=== PATIENT | female | born 1985 | race Caucasian/White ===

== ENCOUNTER 2019-05-26 16:18 | Observation (INO) | payer SELFPAY ==
[~2019-05-26] VITALS: Ht 154.9 cm; Wt 52.2 kg
[2019-05-26] MEDS ORDERED: SODIUM CHLORIDE 0.9% 1000ML 1,000 ML IV SCH (17:00)
[2019-05-26] MEDS ORDERED: SODIUM CHLORIDE 0.9% 1000ML 1,000 ML IV STA (17:07)
[2019-05-26 17:27] LABS: BILIRUBIN,URINE NEGATIVE (NEGATIVE); CLARITY,URINE CLEAR (CLEAR); COLOR,URINE YELLOW (YELLOW); KETONES,URINE NEGATIVE (NEGATIVE); LEUKOCYTE ESTERASE ,URINE NEGATIVE (NEGATIVE); NITRITE,URINE NEGATIVE (NEGATIVE); PROTEIN,URINE DIPSTICK NEGATIVE (NEGATIVE); URINE UROBILINOGEN 0.2 mg/dL (0.2 - 1)
[2019-05-26 17:34] LABS: PREGNANCY TEST, URINE NEGATIVE (NEGATIVE)
[2019-05-26 17:35] LABS: AMPHETAMINES SCREEN,URINE NEGATIVE (NEGATIVE); BENZODIAZEPINES SCREEN,URINE NEGATIVE (NEGATIVE); PHENCYCLIDINE SCREEN,URINE NEGATIVE (NEGATIVE)
[2019-05-26] MEDS ORDERED: ONDANSETRON HCL INJ 2MG/ML 2ML 2 MG/ML VIAL IV ONE (17:48)
[2019-05-26 17:49] LABS: BASOPHILS % 0.3 % (0.0-1.0); EOSINOPHILS # (AUTO) 0.1 (0.0-0.4); EOSINOPHILS % 0.7 % (0.0-6.0); HEMOGLOBIN 9.4 g/dL (12.0-16.0); LYMPHOCYTES # (AUTO) 1.3 (1.0-3.2); LYMPHOCYTES % 14.5 % (18.0-39.1); MEAN CORPUSCULAR HEMOGLOBIN 20.6 pg (28-32); MEAN CORPUSCULAR HGB CONC 29.4 g/dL (31-35); MEAN CORPUSCULAR VOLUME 70.2 fL (81-99); MONOCYTES # (AUTO) 0.4 (0.2-0.8); MONOCYTES % 4.4 % (4.4-11.3); NEUTROPHILS # (AUTO) 7.3 (2.1-6.9); NEUTROPHILS % 79.8 % (38.7-80.0); PLATELET COUNT 687 x10e3/uL (140-360); RED BLOOD COUNT 4.56 x10e6/uL (3.6-5.1); RED CELL DISTRIBUTION WIDTH 18.6 % (11.7-14.4)
[2019-05-26] MEDS ORDERED: MORPHINE SULFATE INJ 4 MG/ML INJ 1ML IV ONE (18:00)
[2019-05-26 18:07] LABS: ALANINE AMINOTRANSFERASE 10 IU/L (0-55); ALBUMIN 4.3 g/dL (3.5-5.0); ALKALINE PHOSPHATASE 117 IU/L (40-150); AMYLASE 58 U/L (25-125); ANION GAP 18.5 mmol/L (8-16); BLOOD UREA NITROGEN 14 mg/dL (7-26); BUN/CREATININE RATIO 14 (6-25); CALCIUM 9.9 mg/dL (8.4-10.2); CARBON DIOXIDE 20 mmol/L (22-29); CHLORIDE 104 mmol/L (98-107); CREATINE KINASE 52 IU/L (29-168); CREATININE, SERUM 0.99 mg/dL (0.57-1.11); EST GLOMERULAR FILTRATION RATE > 60 ML/MIN (60-); GLUCOSE 106 mg/dL (74-118); LIPASE 88 U/L (8-78); POTASSIUM 3.5 mmol/L (3.5-5.1); SODIUM 139 mmol/L (136-145)
[2019-05-26] MEDS ORDERED: ASPIRIN 81 MG CHEW TAB PO ONE (19:15)
[2019-05-26] MEDS ORDERED: KETOROLAC TROMETHAMINE 30 MG/ML VIAL IV STA (19:27)
[2019-05-26] MEDS: SODIUM CHLORIDE 0.9% 1000ML 1,000 ML IV SCH (19:29)
[2019-05-26] MEDS ORDERED: MORPHINE SULFATE 2 MG/ML SYR 1ML IV PRN (19:30)
[2019-05-26] MEDS ORDERED: no home meds (19:32)
--- NOTE | 2019-05-26 20:18 | Diagnostic Imaging Report ---
EXAMINATION: PA and lateral views of the chest. COMPARISON: None CLINICAL HISTORY: Left rib pain, no injury DISCUSSION: Lines/tubes: None. Lungs: The lungs are well inflated and clear. There is no evidence of pneumonia or pulmonary edema. Pleura: There is no pleural effusion or pneumothorax. Heart and mediastinum: Cardiomediastinal silhouette is unremarkable. Pulmonary vasculature is normal. Bones and soft tissues: No acute bony abnormalities. No acute, displaced fracture or dislocation. No lytic or expansile lesions IMPRESSION: No acute cardiopulmonary abnormalities. Signed by: Dr. Everette Lott M.D. on 05/26/2019 8:15 PM
[2019-05-26] MEDS: MORPHINE SULFATE INJ 4 MG/ML INJ 1ML IV PRN (22:02)
[2019-05-26 23:44] VITALS: BP 141/93
[2019-05-26] MEDS ORDERED: ACETAMINOPHEN 325 MG TAB PO PRN (23:45)
[2019-05-26 23:46] VITALS: BP 141/93
[2019-05-27] VITALS (7 sets, daily range): BP systolic 117–152; BP diastolic 78–100
--- NOTE | 2019-05-27 01:24 | NUR ---
Report received from JUAN MIGUEL Anderson. Patient admitted in unit @2300 by stretcher. Patient received alert/oriented x3. Denied pain and no SOB. Respiration even and unlabored. head to toe assessment completed. No skin breakdown. Patient instructed to call for help as needed,verbalized and understand. bed in lower position,locked. Call carmona within reach. Will continue to monitor.
[2019-05-27] MEDS: MORPHINE SULFATE INJ 4 MG/ML INJ 1ML IV PRN ×3 (01:58→10:11)
[2019-05-27 02:16] LABS: CREATINE KINASE MB 0.6 ng/mL (0-5.0)
[2019-05-27] MEDS: SODIUM CHLORIDE 0.9% 1000ML 1,000 ML IV SCH (03:08)
[2019-05-27 06:33] LABS: BASOPHILS % 0.4 % (0.0-1.0); EOSINOPHILS # (AUTO) 0.2 (0.0-0.4); EOSINOPHILS % 1.7 % (0.0-6.0); HEMATOCRIT 24.4 % (34.2-44.1); LYMPHOCYTES # (AUTO) 3.2 (1.0-3.2); LYMPHOCYTES % 36.1 % (18.0-39.1); MEAN CORPUSCULAR HEMOGLOBIN 20.1 pg (28-32); MEAN CORPUSCULAR HGB CONC 27.9 g/dL (31-35); MONOCYTES # (AUTO) 0.8 (0.2-0.8); MONOCYTES % 8.9 % (4.4-11.3); NEUTROPHILS # (AUTO) 4.7 (2.1-6.9); NEUTROPHILS % 52.7 % (38.7-80.0); PLATELET COUNT 499 x10e3/uL (140-360); RED BLOOD COUNT 3.39 x10e6/uL (3.6-5.1); RED CELL DISTRIBUTION WIDTH 18.8 % (11.7-14.4)
[2019-05-27 06:57] LABS: ANION GAP 12.6 mmol/L (8-16); BLOOD UREA NITROGEN 11 mg/dL (7-26); BUN/CREATININE RATIO 14 (6-25); CALCIUM 8.6 mg/dL (8.4-10.2); CARBON DIOXIDE 22 mmol/L (22-29); CHLORIDE 110 mmol/L (98-107); CREATINE KINASE 46 IU/L (29-168); CREATININE, SERUM 0.78 mg/dL (0.57-1.11); EST GLOMERULAR FILTRATION RATE > 60 ML/MIN (60-); GLUCOSE 95 mg/dL (74-118); POTASSIUM 3.6 mmol/L (3.5-5.1); SODIUM 141 mmol/L (136-145)
[2019-05-27 07:03] LABS: HEMOGLOBIN 6.8 g/dL (12.0-16.0)
--- NOTE | 2019-05-27 07:19 | NUR ---
Report given to oncoming nurse Avril, walking round done.
[2019-05-27 07:45] LABS: EOSINOPHILS % (MANUAL) 1 % (0-7); LYMPHOCYTES % (MANUAL) 33 % (19-48); MONOCYTES % (MANUAL) 6 % (3.4-9.0); NEUTROPHILS % (MANUAL) 60 % (40-74)
[2019-05-27 07:46] LABS: ANISOCYTOSIS S; ELLIPTOCYTE, RBC S; OVALOCYTES FEW; PLATELET MORPHOLOGY COMMENT NORMAL; POIKILOCYTOSIS F; RBC MORPHOLOGY COMMENT ABNORMAL
[2019-05-27 07:47] LABS: PLATELET ESTIMATE SLIGHTLY INCREASED
[2019-05-27] MEDS ORDERED: ASPIRIN 81 MG ENTERIC COATED PO SCH (09:00)
[2019-05-27 10:56] LABS: CHOL/HDL RATIO 2.4 (3.0-3.6)
[2019-05-27 10:58] LABS: HEMATOCRIT 23.1 % (34.2-44.1)
[2019-05-27 11:11] LABS: HEMOGLOBIN 6.8 g/dL (12.0-16.0)
[2019-05-27 11:15] LABS: THYROID STIMULATING HORMONE 3.33 uIU/mL (0.350-4.940)
[2019-05-27] MEDS ORDERED: FUROSEMIDE INJ 10 MG/ML 2 ML VIAL IV PRN (11:45)
[2019-05-27] MEDS ORDERED: SODIUM CHLORIDE 0.9% 250ML 250 ML IV NR ×2 (12:00→12:15)
[2019-05-27] MEDS: LIDOCAINE 5% PATCH TP SCH (13:01)
--- NOTE | 2019-05-27 13:25 | Diagnostic Imaging Report ---
EXAM: CT Chest WITH contrast- Pulmonary Embolism Protocol INDICATION: Chest pain COMPARISON: Chest radiograph 05/26/2019 TECHNIQUE: Chest was scanned utilizing a multidetector helical scanner from the lung apex through the level of the diaphragm after administration of IV contrast. Thin section reconstructions were obtained with special concentration on the pulmonary arteries. Coronal and sagittal reformations were obtained. Pulmonary embolism protocol was performed. IV CONTRAST: 100 cc of Isovue 370 RADIATION DOSE: Total DLP: 246.8 mGy*cm Dose modulation, iterative reconstruction, and/or weight based adjustment of the mA/kV was utilized to reduce the radiation dose to as low as reasonably achievable. COMPLICATIONS: None FINDINGS: LINES/ TUBES: None. PULMONARY ARTERIES: No filling defect is identified within the pulmonary arteries to the segmental level. The subsegmental pulmonary arteries are not well opacified. Main pulmonary artery measures 2.2 cm in diameter. LUNGS AND AIRWAYS: The central airways are patent. No focal consolidation or pulmonary edema. No suspicious pulmonary nodules. PLEURA: The pleural spaces are clear. HEART AND MEDIASTINUM: The thyroid gland appears unremarkable. No supraclavicular, mediastinal, or hilar lymphadenopathy. The heart is not enlarged. No evidence of right heart strain. No pericardial effusion. UPPER ABDOMEN: No focal abnormalities of the partially visualized liver, spleen, adrenals, or pancreas. Status post cholecystectomy. Several nonobstructive left upper pole renal calculi measure up to 6 mm. BONES: The visualized bony thorax is within normal limits. SOFT TISSUES: Unremarkable. IMPRESSION: No pulmonary embolism. No acute cardiopulmonary process. Nonobstructive left upper pole renal calculi. Signed by: Anshu Floyd MD on 05/27/2019 1:21 PM
[2019-05-27] MEDS: MORPHINE SULFATE 2 MG/ML SYR 1ML IV PRN ×3 (14:23→22:20)
[2019-05-27 14:39] LABS: CREATINE KINASE 49 IU/L (29-168)
[2019-05-27] MEDS ORDERED: SODIUM CHLORIDE 0.9% 50ML 50 ML ONE (15:03)
[2019-05-27] MEDS ORDERED: IOPAMIDOL 370 MG/ML 200 ML INFUS..BTL INJ ONE (15:03)
--- NOTE | 2019-05-27 15:20 | History and Physical ---
CHIEF COMPLAINT: Chest pain. HISTORY OF PRESENT ILLNESS: A 34-year-old female with no past medical history, who presents to the ED with complaints of underlying left-sided chest pain ongoing for the last 2 days. The patient reports that she noticed this two days ago, but denies any trauma or any increase with activity that suggests the pain. She was driving on the freeway yesterday and noticed that her pain was getting worse and came in to [facility] for further evaluation. She denies taking any medications at home. Denies any oral contraceptive medications at home. She does have normal periods and was noticed to have a hemoglobin of 6.8 today. The patient was seen and evaluated at bedside on the medical floor. Currently, she is doing well with no other issues at this time. Cardiology has been consulted. REVIEW OF SYSTEMS: Pertinent positive: Left-sided chest pain. Pertinent negatives: Denies any palpitation, nausea, vomiting, diarrhea, dysuria, hematuria, frequency, urgency, lightheadedness, dizziness, abdominal pain, headaches, shortness of breath, cough, congestion, fever, or any other complaints. Rest of the 14-point review of systems have been reviewed with the patient and are negative. ALLERGIES: CODEINE, IBUPROFEN, KETOROLAC. HOME MEDICATIONS: None. PAST MEDICAL HISTORY: None. PAST SURGICAL HISTORY: None. FAMILY HISTORY: Hypertension and diabetes. SOCIAL HISTORY: No drugs, no alcohol, does not smoke. Good social support. PHYSICAL EXAMINATION: VITAL SIGNS: Temperature 97.7, pulse 93, respiratory rate is 20, blood pressure is 130/78, pulse ox 99% on room air. GENERAL: Not in acute distress. Alert and oriented x3. Cooperative on examination. HEENT: Head is normocephalic and atraumatic. Eyes; pupils are equal, round, and reactive to light bilaterally. Extraocular Movements are intact bilaterally. Throat, no evidence of erythema or exudates in the posterior pharynx. Has poor dentition. NECK: Supple. Good range of motion. PULMONARY: Clear to auscultation bilaterally. No wheezing, rales, or rhonchi. No crackles appreciated. CARDIOVASCULAR: Positive S1 and S2. No murmurs, rubs, or gallops. GI: Abdomen is soft, nondistended, and nontender to palpation. Bowel sounds present. MUSCULOSKELETAL: Strength is 5/5 throughout. No evidence of any muscle deficits on examination. No weakness appreciated. NEUROLOGIC: Cranial nerves II through XII grossly intact. No evidence of any neurological deficits on exam. SKIN: Intact. Warm to touch. Good cap Refill. PSYCHIATRIC: Normal affect and mood. EXTREMITIES: No edema. Good range of motion throughout. LABORATORY DATA: Lab findings show white count on admission is 9.1, hemoglobin on admission was 9.4 then downtrended to 6.8. Her MCV is 72. Her hematocrit is 23, platelets of 499. D-dimer 217. Chemistry; sodium 141, potassium 3.6, chloride 110, bicarbonate 22, anion gap of 12, BUN is 11, creatinine 0.78, glucose 95, calcium is 8.6, total bilirubin is 0.2, AST is 15, ALT is 10, albumin was 4.3, TSH 3.3, lipase 88, amylase 68, LDL 58, albumin 4.3. Troponins were all negative. Urinalysis was negative. Urine drug screen was negative. MICROBIOLOGY: None. IMAGING STUDIES: Chest x-ray, no acute cardiopulmonary abnormality. IMPRESSION: 1. Atypical chest pain. 2. Iron-deficiency anemia. 3. Costochondritis. PLAN: At this time, cardiac enzymes were negative. Cardiology was consulted, likely to be atypical in nature and seems to be from her story as well. Tender to palpation on examination. We will continue with pain control. I will get a type and screen and transfuse 1 unit of packed RBCs. We will put a lidocaine patch. Toradol was given. If the patient is cleared by Cardiology, we will discharge home today. I did order a CTA of the chest for ruling out of PE as she does complain of like chest pain in the left lower quadrant of her chest and I want to rule out any kind of clots. At this time, we will continue with same plan of care and monitor closely. If imaging studies are negative, blood transfusion given, cleared by Cardiology to potentially discharge home later today. MD RISSA Watt/LASHAWNL /[id number]
--- NOTE | 2019-05-27 15:55 | Consultation ---
DATE OF CONSULTATION: 05/27/2019 REASON FOR CONSULTATION: Chest pain. CHIEF COMPLAINT: Left flank chest pain. HISTORY OF PRESENT ILLNESS: This is a 34-year-old female with no medical history. The patient presents to [facility] ER with 3-day history of left flank chest pain. Cardiology was consulted. Labs noted. Cardiac enzymes showing negative x3. D-dimer within normal range. However, EKG was done with initially showing inverted T-waves in the inferior lateral leads. However, repeat EKG done showing sinus rhythm, heart rate in 70s with normal sinus rhythm. The patient was evaluated with bedside nurse. The patient reports left flank chest pain for the past 2 to 3 days, constant in nature, reproducible with palpation and also worse with deep breathing. The patient denies any recent activities or heavy lifting of such. The patient, however, denies any exertional chest pain, any shortness of breath, any orthopnea, PND, or lower extremity edema. PAST MEDICAL HISTORY: Denies any medical history. PAST SURGICAL HISTORY: Cholecystectomy. SOCIAL HISTORY: She is . She has two kids, reports healthy. 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 She denies any alcohol use, tobacco use. FAMILY HISTORY: Mother is alive, age 60, reported as healthy. Father at the age of 52, apparently with complications of thyroid cancer, however, did have a history of coronary artery disease, status post CABG. ALLERGIES: TO CODEINE, IBUPROFEN, TORADOL. HOME MEDICATIONS: Denies any home medications. REVIEW OF SYSTEMS: GENERAL: Denies any weight changes, fatigue, fevers, chills, night sweats. SKIN: No rashes, bruises were noted. HEENT: Denies nausea, vomiting, any vision changes, blurred vision, double vision, epistaxis, sore throat, swollen neck. CARDIAC: Denies any exertional chest pain, however, does report left chest flank pain as above. Denies any shortness of breath. No orthopnea, PND, or lower extremity edema. RESPIRATORY: Denies any shortness of breath. No wheezing, coughing, hemoptysis. GI: Reports good appetite. No nausea, vomiting, diarrhea, constipation, melena, hematochezia. URINARY: Denies any frequency, urgency, dysuria, hematuria. VASCULAR: Denies any lower extremity edema, claudication. MUSCULOSKELETAL: Denies any muscle weakness, any joint pains. NEUROLOGIC: Denies any numbness, tingling, tremors, weakness, paralysis. HEMATOLOGY: Denies any bleeding or bruising. ENDOCRINE: Denies heat or cold intolerance, polyuria, polydipsia, or polyphagia. PHYSICAL EXAMINATION: VITAL SIGNS: Height 61 inches, weight 115 pounds. Temperature 97, pulse 93, respiratory rate 20, blood pressure 130/78, pulse ox 99% on room air. GENERAL: Appears stated age, reliable informant. No acute distress. SKIN: No rashes, bruises noted. HEENT: Normocephalic. Pupils equal and reactive. Extraocular movement intact. Trachea midline. No thyromegaly. No JVD. HEART: Regular rate and rhythm. No murmurs, clicks, or gallops noted. LUNGS: Bilateral breath sounds clear to auscultation. ABDOMEN: Soft, nontender, nondistended. No organomegaly noted. MUSCULOSKELETAL: Good muscle strength throughout. VASCULAR: +2 bilateral radial pulses. +2 DP and PT pulses bilaterally. NEUROLOGIC: Cranial nerves II through XII seem intact. LABORATORY DATA: White count 9, hemoglobin 9.4, however, repeat was 6.8 this morning, hematocrit 32, platelets 687. Sodium 141, potassium 3.6, chloride 110, BUN 11, creatinine 0.7. Troponins less than 0.001, 0.006, less than 0.001. D-dimer 217. Chest x-ray, no acute abnormalities. EKG; initial EKG showing sinus tach at 115 with inverted T-waves in the inferior lateral leads. Second EKG showing sinus rhythm, heart rate 78, no acute changes. ASSESSMENT: 1. Chest pain. 2. Anemia. PLAN: 1. The patient presents with left flank chest pain, atypical for cardiac, it is reproducible with palpation. Also, it is worse with deep breathing. Enzymes have been strongly negative x3. However, initial EKG did show some inverted T-waves in the inferior lateral leads. 2. We will get an echo to evaluate heart function and structure. 3. Given the patient's anemia, we will check fecal occult blood. 4. Of note, the patient is on her menses. 5. Check lipid and TSH panel. 6. We will continue to monitor the patient and make further recommendations as clinical course dictates. Thank you very much for this consult. Seen and evaluated Cardiac observation, Anemia and drop in H/H workup Dictated by Franki Shaw, PUBLIC HEALTH ADMINISTRATOR Ronnie Rob MD DC/MAI /[id number] KIARRA
[2019-05-27] MEDS ORDERED: SODIUM CHLORIDE 0.9% 250ML 250 ML ONE (17:25)
[2019-05-27 22:37] LABS: HEMATOCRIT 31.7 % (34.2-44.1); HEMOGLOBIN 9.4 g/dL (12.0-16.0)
--- NOTE | 2019-05-27 23:22 | NUR ---
pt recvd 1 unit of PRBC. HH wnl. pt to follow up with PCP and renal for kidney stones.
--- NOTE | 2019-05-27 23:45 | NUR ---
received report on patient. patient aaox3, amb., no needs voiced. patient refused discharge. spoke with dr. madden, okay to hold patient until he sees her tomorrow. patient aware.
[2019-05-28 00:10] VITALS: BP 146/96
[2019-05-28] MEDS: MORPHINE SULFATE 2 MG/ML SYR 1ML IV PRN ×2 (02:28→08:24)
[2019-05-28 04:34] VITALS: BP 151/99
[2019-05-28 05:41] LABS: BASOPHILS % 0.4 % (0.0-1.0); EOSINOPHILS # (AUTO) 0.1 (0.0-0.4); EOSINOPHILS % 0.9 % (0.0-6.0); HEMATOCRIT 28.8 % (34.2-44.1); HEMOGLOBIN 8.7 g/dL (12.0-16.0); LYMPHOCYTES # (AUTO) 2.5 (1.0-3.2); MEAN CORPUSCULAR HEMOGLOBIN 21.9 pg (28-32); MEAN CORPUSCULAR HGB CONC 30.2 g/dL (31-35); MEAN CORPUSCULAR VOLUME 72.5 fL (81-99); MONOCYTES # (AUTO) 0.7 (0.2-0.8); MONOCYTES % 7.9 % (4.4-11.3); NEUTROPHILS # (AUTO) 5.6 (2.1-6.9); NEUTROPHILS % 62.5 % (38.7-80.0); PLATELET COUNT 489 x10e3/uL (140-360); RED BLOOD COUNT 3.97 x10e6/uL (3.6-5.1)
[2019-05-28 06:06] LABS: ANION GAP 14.5 mmol/L (8-16); BLOOD UREA NITROGEN 13 mg/dL (7-26); BUN/CREATININE RATIO 15 (6-25); CALCIUM 9.1 mg/dL (8.4-10.2); CARBON DIOXIDE 25 mmol/L (22-29); CHLORIDE 106 mmol/L (98-107); CREATININE, SERUM 0.86 mg/dL (0.57-1.11); EST GLOMERULAR FILTRATION RATE > 60 ML/MIN (60-); GLUCOSE 108 mg/dL (74-118); POTASSIUM 3.5 mmol/L (3.5-5.1); SODIUM 142 mmol/L (136-145)
[2019-05-28 06:08] LABS: % IRON SATURATION 4 % (15-50); IRON 21 ug/dL (50-170); TOTAL IRON BINDING CAPACITY 494 ug/dL (261-478); TRANSFERRIN 353 mg/dL (180-382)
--- NOTE | 2019-05-28 07:06 | NUR ---
report given to oncoming nurse.
[2019-05-28 07:24] VITALS: BP 159/93
[2019-05-28] MEDS: LIDOCAINE 5% PATCH TP SCH ×2 (08:24→09:11)
[2019-05-28 09:00] VITALS: BP 159/93
[2019-05-28 11:24] VITALS: BP 144/95
--- NOTE | 2019-05-28 11:56 | NUR ---
Rounds by attending and will provide patient with prescription for pain meds, she is to follow up with her Primary care for referral to Urology secondary to Kidney stones. Provide
[2019-05-28] MEDS ORDERED: ULTRAM50 MG PO (12:57)
--- NOTE | 2019-05-28 13:45 | NUR ---
Rounds by attending and will provide patient with prescription for pain meds, she is to follow up with her Primary care for referral to Urology secondary to Kidney stones. Provided with prescription, discharge summary and referral to f/u with urology for renal calculi. IV line removed, cath tip in place and dressing applied. Patient ok to discharge and waiting for her ride.
--- NOTE | 2019-05-29 02:32 | Discharge Summary ---
FINAL DISCHARGE DIAGNOSES: 1. Atypical chest pain. 2. Iron deficiency anemia, status post blood transfusion 2 units given. 3. Costochondritis. 4. Nonobstructive renal stones in the left upper pole of the kidney. CONSULTANTS: Cardiology. VITAL SIGNS: Temperature is 98.8, pulse 75, respiratory rate is 16, blood pressure is 144/95, pulse ox 99% on room air. LAB FINDINGS: Show white count 8.9, hemoglobin 8.7, status post blood transfusion given, hematocrit 28, and platelets of . Chemistry; sodium 143, potassium 3.5, chloride 106, bicarb 25, anion gap of 14, BUN is 13, creatinine is 0.86, glucose 108, calcium is 9.1, iron saturation 4%. LFTs within normal range. Troponin is negative. Albumin was 4.3. Lipase 88, LDL 58. TSH 3.3. Urinalysis negative. Urine drug screen negative. MICROBIOLOGY: None. IMAGING STUDIES: Chest x-ray negative. CTA PE protocol shows no PE. No acute cardiopulmonary process. Nonobstructive left upper pole renal calculi seen. HOSPITAL COURSE: This is a 34-year-old female, who came into the ED with complaints of left-sided substernal chest pain that began on the day of admission. The patient was admitted under observation and Cardiology was consulted. Cardiac enzymes were negative. A 2D echo shows normal EF. Chest CTA shows no evidence of pulmonary embolism, but does show some left upper pole nonobstructive renal calculi and needs outpatient followup with Urology. Chest x-ray was negative. All her labs were normal as well. Urine drug screen was negative as well. The patient did well prior to being discharged and had no other complaints. The patient was cleared for discharge by Cardiology. On the day of discharge, vital signs were stable, labs reviewed and stable. The patient seen and evaluated, examined thoroughly on the day of discharge. No other complaints. The patient verbalized understanding and agrees with plan of care to follow up accordingly with the primary care physician in 1 week and Urology in 2 weeks' time. MEDICATIONS: See med reconciliation form. DISPOSITION: Home. CONDITION: Stable. DIET: Heart healthy. In the event of any worsening symptoms, the patient was advised to come back to the ED for further evaluation. Discharge summary took greater than 35 minutes. MD RISSA Watt/MAI /[id number]
== END 2019-05-28 14:05 | disposition home or self-care (01) ==
LOC: ER 16:18 → ERHOLD 20:04 → IMCU 23:05
PROVIDERS: ADMIT Internal Medicine; ATTEND Internal Medicine
DX: R07.89 Other chest pain (principal); D50.9 Iron deficiency anemia, unspecified; M94.0 Chondrocostal junction syndrome [Tietze]; Z88.6 Allergy status to analgesic agent; Z88.5 Allergy status to narcotic agent; Z88.8 Allergy status to other drugs, medicaments and biological substances; Z82.49 Family history of ischemic heart disease and other diseases of the circulatory system; N20.0 Calculus of kidney
CPT/HCPCS: 36415 ×2; 71046; 71260; 80048 ×2; 80053; 80061; 80307; 81001; 81025; 82150; 82550 ×2; 82553 ×2; 82728; 83540; 83690; 84443; 84466; 84484 ×2; 85014; 85018; 85025 ×3; 85379; 86850; 86900; 86920; 93005 ×2; 93306; 99284; G0378 ×3; J1940; J2270 ×4; J2405; J7030; J7050; P9016; Q9967

== ENCOUNTER 2019-07-02 14:27 | Emergency (ER) | payer SELFPAY ==
[~2019-07-02] VITALS: Ht 154.9 cm; Wt 52.2 kg
[~2019-07-02 14:27] MED LIST: ULTRAM50 MG PO; no home meds
--- OUTSIDE RECORDS SUMMARY | 2019-07-02 14:29 | XMS REPORT ---
Author Author [facility] Address Unknown Phone Unavailable Care Team Providers Care Cream Hauler Name Role Phone Salma TURCIOS Unavailable Unavailable Problems This patient has no known problems. Allergies, Adverse Reactions, Alerts This patient has no known allergies or adverse reactions. Medications This patient has no known medications. Results Test Description Test Time Test Comments Text Results Atomic Results Result Comments CT CHEST W 2019-05-27 13:12:00 [place] [address] Patient Name: JULIANO PATEL MR #: [id number] : 1985 Age/Sex: 34/F Req #: [id number] [facility] Physician: BRE TURCIOS MD Ordered by: BRE TURCIOS MD Report #: [id number] Location: [facility] Room/Bed: [place] [address] Procedure: [id number] CT/CT CHEST W Exam Date: 05/27/19 Exam Time: 1220 REPORT STATUS: Signed EXAM: CT Chest WITH contrast- Pulmonary Embolism Protocol INDICAT ION: Chest pain COMPARISON: Chest radiograph 05/26/2019 TECHNIQUE: Chest was scanned utilizing a multidetector helical scanner from the lung apex through the level of the diaphragm after administration of IV contrast. Thin section reconstructions were obtained with special concentration on the pulmonary arteries. Coronal and sagittal reformations were obtained. Pulmonary embolism protocol was performed. IV CONTRAST: 100 cc of Isovue 370 RADIATION DOSE: Total DLP: 246.8 mGy*cm Dose modulation, iterative reconstruction, and/or weight based adjustment of the mA/kV was utilized to reduce the radiation dose to as low as reasonably achievable. COMPLICATIONS: None FINDINGS: LINES/ TUBES: None. PULMONARY ARTERIES: No filling defect is identified within the pulmonary arteries to the segmental level. The subsegmental pulmonary arteries are not well opacified. Main pulmonary artery measures 2.2 cm in diameter. LUNGS AND AIRWAYS: The central airways are patent. No focal consolidation or pulmonary edema. No suspicious pulmonary nodules. PLEURA: The pleural spaces are clear. HEART AND MEDIASTINUM: The thyroid gland appears unremarkable. No supraclavicular, mediastinal, or hilar lymphadenopathy. The heart is not enlarged. No evidence of right heart strain. No pericardial effusion. UPPER ABDOMEN: No focal abnormalities of the partially visualized liver, spleen, adrenals, or pancreas. Status post cholecystectomy. Several nonobstructive left upper pole renal calculi measure up to 6 mm. BONES: The visualized bony thorax is within normal limits. SOFT TISSUES: Unremarkable. IMPRESSION: No pulmonary embolism. No acute cardiopulmonary process. Nonobstructive left upper pole renal calculi. Signed by: Elder Laboy MD on 05/27/2019 1:21 PM Dictated By: ELDER LABOY MD 1321 Transcribed By: BROOKLYN on 05/27/19 1321 COPY TO: BRE TURCIOS MD CHEST 2 VIEWS 2019-05-26 20:14:00 [place] [address] Patient Name: JULIANO PATEL MR #: [id number] : 1985 Age/Sex: 34/F Req #: [id number] Adm Physician: BRE TURCIOS MD Ordered by: CIPRIANO FLORENTINO LEARNING FACILITATOR Report #: [id number] Location: [facility] Room/Bed: [place] [address] Procedure: [id number] DX/CHEST 2 VIEWS Exam Date: 05/26/19 Exam Time: 1857 REPORT STATUS: Signed EXAMINATION: PA and lateral views of the chest. COMPARISON: None CLINICAL HISTORY: Left rib pain, no injury DISCUSSION: Lines/tubes: None. Lungs: The lungs are well inflated and clear. There is no evidence of pneumonia or pulmonary edema. Pleura: There is no pleural effusion or pneumothorax. Heart and mediastinum: Cardiomediastinal silhouette is unremarkable. Pulmonary vasculature is normal. Bones and soft tissues: No acute bony abnormalities. No acute, displaced fracture or dislocation. No lytic or expansile lesions IMPRESSION: No acute cardiopulmonary abnormalities. Signed by: Dr. Sharri Lott M.D. on 05/26/2019 8:15 PM Dictated By: SHARRI LOTT MD 14 Transcribed By: BROOKLYN on 05/26/192014 COPY TO: CIPRIANO FLORENTINO NP
[2019-07-02] MEDS ORDERED: SODIUM CHLORIDE 0.9% 1000ML 1,000 ML IV STA (14:56)
[2019-07-02] MEDS ORDERED: ONDANSETRON HCL INJ 2MG/ML 2ML 2 MG/ML VIAL IV STA (14:56)
[2019-07-02] MEDS ORDERED: KETOROLAC TROMETHAMINE 30 MG/ML VIAL IV STA (14:56)
[2019-07-02] MEDS ORDERED: MORPHINE SULFATE INJ 4 MG/ML INJ 1ML IV STA (15:00)
[2019-07-02 15:42] LABS: PREGNANCY TEST, URINE NEGATIVE (NEGATIVE)
[2019-07-02 15:44] LABS: BILIRUBIN,URINE NEGATIVE (NEGATIVE); CLARITY,URINE CLEAR (CLEAR); COLOR,URINE YELLOW (YELLOW); KETONES,URINE NEGATIVE (NEGATIVE); LEUKOCYTE ESTERASE ,URINE NEGATIVE (NEGATIVE); NITRITE,URINE NEGATIVE (NEGATIVE); PROTEIN,URINE DIPSTICK NEGATIVE (NEGATIVE); URINE UROBILINOGEN 0.2 mg/dL (0.2 - 1)
[2019-07-02 15:55] LABS: BACTERIA,URINE RARE /HPF; EPITHELIAL CELLS,URINE FEW /LPF
[2019-07-02 16:15] LABS: BASOPHILS # (AUTO) 0.1 (0.0-0.1); BASOPHILS % 0.4 % (0.0-1.0); EOSINOPHILS % 0.4 % (0.0-6.0); HEMATOCRIT 33.3 % (34.2-44.1); HEMOGLOBIN 9.7 g/dL (12.0-16.0); LYMPHOCYTES # (AUTO) 2.1 (1.0-3.2); LYMPHOCYTES % 18.7 % (18.0-39.1); MEAN CORPUSCULAR HEMOGLOBIN 21.7 pg (28-32); MEAN CORPUSCULAR HGB CONC 29.1 g/dL (31-35); MEAN CORPUSCULAR VOLUME 74.7 fL (81-99); MONOCYTES # (AUTO) 0.6 (0.2-0.8); MONOCYTES % 5.6 % (4.4-11.3); NEUTROPHILS # (AUTO) 8.3 (2.1-6.9); NEUTROPHILS % 74.5 % (38.7-80.0); PLATELET COUNT 539 x10e3/uL (140-360); RED BLOOD COUNT 4.46 x10e6/uL (3.6-5.1); RED CELL DISTRIBUTION WIDTH 18.4 % (11.7-14.4)
[2019-07-02 16:31] LABS: ALANINE AMINOTRANSFERASE 14 IU/L (0-55); ALBUMIN 4.2 g/dL (3.5-5.0); ALBUMIN/GLOBULIN RATIO 1.1 (0.8-2.0); ALKALINE PHOSPHATASE 127 IU/L (40-150); ANION GAP 16.1 mmol/L (8-16); BLOOD UREA NITROGEN 10 mg/dL (7-26); BUN/CREATININE RATIO 12 (6-25); CALCIUM 9.3 mg/dL (8.4-10.2); CARBON DIOXIDE 22 mmol/L (22-29); CHLORIDE 106 mmol/L (98-107); CREATININE, SERUM 0.85 mg/dL (0.57-1.11); EST GLOMERULAR FILTRATION RATE > 60 ML/MIN (60-); GLUCOSE 98 mg/dL (74-118); POTASSIUM 4.1 mmol/L (3.5-5.1); SODIUM 140 mmol/L (136-145)
--- NOTE | 2019-07-02 17:14 | Diagnostic Imaging Report ---
EXAM: CT Abdomen and Pelvis WITHOUT intravenous contrast INDICATION: Left flank pain, history of renal calculi COMPARISON: Chest CT of 05/27/2019 TECHNIQUE: Abdomen and pelvis were scanned utilizing a multidetector helical scanner from the lung base to the pubic symphysis without administration of IV contrast. Coronal and sagittal reformations were obtained. IV CONTRAST: None ORAL CONTRAST: Water COMPLICATIONS: None RADIATION DOSE: Total DLP: 377.1 mGy*cm Dose modulation, iterative reconstruction, and/or weight based adjustment of the mA/kV was utilized to reduce the radiation dose to as low as reasonably achievable. FINDINGS: LOWER THORAX: Normal. HEPATOBILIARY: No focal liver lesions. No biliary ductal dilation. Status post cholecystectomy. SPLEEN: No splenomegaly. PANCREAS: No focal masses or ductal dilatation. ADRENALS: No adrenal nodules. KIDNEYS/URETERS: Bilateral nonobstructive renal calculi measuring up to 7 mm on the left and 5 mm on the right. Bilateral renal cysts. No hydronephrosis or hydroureter. No ureteral calculi. PELVIC ORGANS/BLADDER: Unremarkable. PERITONEUM / RETROPERITONEUM: No free air or fluid. LYMPH NODES: No lymphadenopathy. VESSELS: Unremarkable. GI TRACT: No abnormal bowel wall thickening. No bowel obstruction. The appendix is not well visualized, however there are no inflammatory changes in the right lower quadrant to suggest acute appendicitis. BONES AND SOFT TISSUES: No acute osseous injury. No suspicious lytic or blastic lesions. IMPRESSION: Bilateral nonobstructive renal calculi measuring up to 7 mm on the left and 5 mm on the right. No hydronephrosis or hydroureter. Signed by: Anshu Floyd MD on 07/02/2019 5:11 PM
[2019-07-02 17:47] VITALS: BP 157/98
== END 2019-07-02 17:51 | disposition home or self-care (01) ==
LOC: ER 14:27
DX: N20.0 Calculus of kidney (principal); R10.9 Unspecified abdominal pain; Z87.442 Personal history of urinary calculi; Z90.49 Acquired absence of other specified parts of digestive tract; Z88.5 Allergy status to narcotic agent; Z88.8 Allergy status to other drugs, medicaments and biological substances
CPT/HCPCS: 36415; 74176; 80053; 81001; 81025; 85025; 87086; 99284; J2270; J2405; J7030